=== PATIENT | male | born 1985 | race Asian ===

== ENCOUNTER → 2019-02-08 08:23 | Outpatient (CLI) | payer OTHER, SELFPAY ==
--- NOTE | 2019-02-08 | DI.MRI.S_ITS ---
PROCEDURE: MR ANKLE LT WO CON INDICATIONS: CHRONIC LEFT ANKLE PAIN/HEEL PAIN TECHNIQUE: Noncontrast sagittal T1 spin echo and T2 fast spin echo with fat saturation, axial proton density fast spin echo and T2 fast spin echo with fat saturation, coronal T1 spin echo and T2 fast spin echo with fat saturation through the ankle/hindfoot. COMPARISON: None. FINDINGS: Image quality: Diagnostic. Bones and joints: No acute fracture, dislocation, suspicious osseous lesion, or evidence of avascular necrosis is present. The ankle mortise is well-maintained. There are no osteochondral defects involving the tibial plafond to the talar dome. No significant degenerative changes of the midfoot or hindfoot drains are present. No significant joint effusions are identified. Medial structures: The deltoid and spring ligaments are intact. The tibialis posterior, flexor digitorum longus, and flexor hallucis longus tendons are intact and within normal limits. The posterior tibial nerve to the region of the tarsal tunnel is unremarkable. Lateral structures: The anterior and posterior distal tibiofibular ligaments are intact. The anterior and posterior talofibular ligaments are intact. The calcaneofibular ligament is intact. There is thickening and increased signal identified involving the peroneus brevis and peroneus longus tendons along the posterior margin of the lateral malleolus without definite tearing appreciated. Incidental note is made of peroneus quartus, which is an accessory muscle/tendon and is noted to be intact. Normal fatty signal is seen within the region of the sinus tarsi. Anterior structures: The tibialis anterior, extensor hallucis longus, and extensor digitorum longus tendons appear intact. Posterior and plantar structures: Thickening of the Achilles tendon is identified, demonstrating slight increased signal. There is also thickening identified involving the medial band of the plantar fascia at its calcaneal attachment, measuring up to approximately 5 mm. IMPRESSION: 1. Mild distal Achilles tendinopathy. 2. Thickening of the plantar fascia may represent plantar fasciitis, in the correct clinical setting. 3. Mild to moderate peroneus brevis and peroneus longus tendinopathy without significant tearing. Dictated by: Jimy Mcmullen M.D. on 02/08/2019 at 10:22 Approved by: Jimy Mcmullen M.D. on 02/08/2019 at 10:41
== END ==
PROVIDERS: PCP Podiatrist; Visit Provider Podiatrist
DX: M25.572 Pain in left ankle and joints of left foot (principal); M79.89 Other specified soft tissue disorders; M76.62 Achilles tendinitis, left leg; M72.2 Plantar fascial fibromatosis; R26.2 Difficulty in walking, not elsewhere classified
CPT/HCPCS: 73721

== ENCOUNTER → 2019-02-14 11:45 | Outpatient (CLI) | payer OTHER, SELFPAY ==
--- NOTE | 2019-02-14 | DI.MRI.S_ITS ---
PROCEDURE: MR FOOT RT WO CON INDICATIONS: Posterior right foot, calcaneal pain TECHNIQUE: Noncontrast sagittal T1 spin echo and T2 fast spin echo with fat saturation, long-axis T1 spin echo and T2 fast spin echo with fat saturation, short-axis T1 spin echo and T2 fast spin echo with fat saturation through the forefoot. COMPARISON: None. FINDINGS: Image quality: Excellent. Bones and joints: No bone marrow contusions or metatarsal stress fractures. The sesamoid bones appear in expected positions, without internal edema. No metatarsophalangeal joint degeneration. No intraosseous lesions. Note is made of a synovial protrusion projecting medially from the posterior margin of the posterior facet of the subtalar joint, best seen originating from the joint margin on series 6 image 23 and having a maximal AP and transverse dimension of 1.4 x 0.7 cm with a craniocaudad height of 1.1 cm. Marrow edema immediately adjacent is not seen. Soft tissues: The visualized plantar foot muscles demonstrate normal signal and bulk. Visualized flexor and extensor tendons appear intact, without tenosynovitis. The distal insertions of the peroneus brevis and longus tendons appear intact. The principal Lisfranc ligament appears intact. No soft tissue ganglion cysts or bursal fluid collections. Sagittal images demonstrate no evidence for plantar plate tears. IMPRESSION: No osseous injury is found, no marrow edema suggestive of bone bruising is seen. Note is made of a 1.4 x 0.7 x 1.1 cm synovial protrusion at the posterior medial calcaneus margin, projecting from the posterior facet of the subtalar joint. Throughout the marrow space no inflammatory change, stress reaction or evidence of traumatic injury is found. No ligamentous disruption or tenosynovitis is seen. The presence of the synovial protrusion discussed above may reflect response to small joint effusion from inflammatory change at the subtalar joint. From the imaging available from this study it does not appear to impinge on the adjacent neurovascular structures. Dictated by: Justo Miller M.D. on 02/14/2019 at 15:44 Approved by: Justo Miller M.D. on 02/14/2019 at 15:51
== END ==
PROVIDERS: PCP Podiatrist; Visit Provider Orthopaedic Surgery
DX: M79.671 Pain in right foot (principal)
CPT/HCPCS: 73718